=== PATIENT | female | born 1970 | race Caucasian/White ===

== ENCOUNTER 2020-02-06 17:53 | Observation (INO) ==
[2020-02-06 18:41] LABS: Basophils % 0.5 %; Eosinophils # 0.1 K/mcL (0.0-0.6); Eosinophils % 1.7 %; Hematocrit 20.3 % (35.3-44.9); Hemoglobin 6.7 g/dL (11.5-15.4); Immature Granulocytes % 0.2 % (0-4); Lymphocytes # 2.6 K/mcL (0.6-4.6); Lymphocytes % 31.6 %; Mean Corpuscular Hemoglobin 30.7 pg (28.0-33.3); Mean Corpuscular Volume 93.1 fL (83.0-100.0); Mean Platelet Volume 10.3 fL (9.4-12.4); Monocytes # 0.7 K/mcL (0.0-1.3); Monocytes % 8.1 %; Neutrophils # 4.8 K/mcL (1.6-8.9); Platelet Count 228 K/mcL (140-400); Red Blood Count 2.18 M/mcL (3.82-4.97); Red Cell Distribution Width 13.6 % (11.5-14.5); Segmented Neutrophils % 57.9 %; White Blood Count 8.3 K/mcL (4.3-11.1)
[2020-02-06 19:00] LABS: BUN/Creatinine Ratio 49 (6-26); Blood Urea Nitrogen 33 mg/dL (6-20); Calcium 8.5 mg/dL (8.6-10.3); Carbon Dioxide 24 mEq/L (23-29); Chloride 105 mEq/L (98-107); Glucose 100 mg/dL (70-105); Osmolality,Calculated 285 (280-300); Potassium 3.4 mEq/L (3.5-5.1); Sodium 134 mEq/L (136-145); Troponin I < 0.03 ng/mL (< 0.04); eGFR For African Americans > 60 (> 60); eGFR For Non-African Americans > 60 (> 60)
[2020-02-06 19:52] LABS: Prothrombin Time 11.4 Seconds (9.4-12.1)
[2020-02-06 19:54] LABS: Activated Partial Thrombo Time 24.9 Seconds (26.0-36.0)
[2020-02-06 21:37] LABS: Immature Reticulocyte % 33.1 % (11.0-38.0); Retculocyte # 0.1 M/mcL (0.05-0.10); Reticulocyte % 4.3 % (1.6-2.8)
[2020-02-06] MEDS ORDERED: Naloxone 0.4 MG/ML INJ IVP PRN (21:37)
[2020-02-06] MEDS ORDERED: cefTRIAXone 2,000 MG in 0.9 % Sodium Chloride Mini Bag 100 ML IVPB ONE (21:42)
[2020-02-06] MEDS ORDERED: Calcium Gluconate 1gm/50mL 1 GM/50 ML BAG IVPB ONE (21:42)
[2020-02-06 21:48] LABS: % Iron Saturation 5 % (15-50); Iron 19 mcg/dL (50-170); Lactate Dehydrogenase 163 Units/L (140-271); Transferrin 290 mg/dL (203-362)
[2020-02-06] MEDS ORDERED: 0.9 % Sodium Chloride 500 ML ONE (21:55)
[2020-02-06 22:06] LABS: Ferritin 22 ng/mL (10-120)
[2020-02-06 22:15] LABS: Folate > 22.3 ng/mL (3.0-16.0); Vitamin B12 765 pg/mL (250-1100)
[2020-02-06 22:40] LABS: Magnesium 1.8 mg/dL (1.6-2.6); Phosphorous 3.9 mg/dL (2.7-4.5)
[2020-02-06] MEDS: Nicotine 14 MG PATCH.TD24 TD SCH (23:55)
[2020-02-06] MEDS: 0.9 % Sodium Chloride 1,000 ML IVC SCH (23:57)
[2020-02-06] MEDS ORDERED: Potassium Chloride 20 MEQ, Lidocaine 1% 2 ML in 0.9 % Sodium Chloride 250 ML IVPB ONE (23:59)
[2020-02-07] MEDS: Melatonin 3 MG TABLET PO SCH (00:33)
[2020-02-07] MEDS: Pantoprazole 40 MG VIAL IVP SCH ×2 (04:20→17:42)
[2020-02-07 04:34] LABS: Basophils % 0.7 %; Eosinophils # 0.2 K/mcL (0.0-0.6); Eosinophils % 3.5 %; Hematocrit 24.7 % (35.3-44.9); Hemoglobin 8.2 g/dL (11.5-15.4); Immature Granulocytes % 0.3 % (0-4); Lymphocytes # 2.2 K/mcL (0.6-4.6); Lymphocytes % 36.7 %; Mean Corpuscular HGB Conc 33.2 g/dL (31.6-35.5); Mean Corpuscular Hemoglobin 30.9 pg (28.0-33.3); Mean Corpuscular Volume 93.2 fL (83.0-100.0); Monocytes # 0.5 K/mcL (0.0-1.3); Monocytes % 7.8 %; Platelet Count 167 K/mcL (140-400); Red Blood Count 2.65 M/mcL (3.82-4.97); Red Cell Distribution Width 13.5 % (11.5-14.5); White Blood Count 5.9 K/mcL (4.3-11.1)
[2020-02-07 04:55] LABS: Alanine Aminotransferase 89 Units/L (7-52); Albumin 2.9 g/dL (3.5-5.7); Albumin/Globulin Ratio 1.7 (1.1-2.2); Alkaline Phosphatase 26 Units/L (34-104); Aspartate Amino Transferase 49 Units/L (13-39); BUN/Creatinine Ratio 33 (6-26); Bilirubin,Total 0.4 mg/dL (0.3-1.0); Blood Urea Nitrogen 20 mg/dL (6-20); Calcium 8.1 mg/dL (8.6-10.3); Carbon Dioxide 23 mEq/L (23-29); Chloride 110 mEq/L (98-107); Globulin 1.7 g/dL (2.4-3.5); Glucose 91 mg/dL (70-105); Osmolality,Calculated 288 (280-300); Potassium 3.3 mEq/L (3.5-5.1); Sodium 138 mEq/L (136-145); Total Protein 4.6 g/dL (6.4-8.9); Troponin I < 0.03 ng/mL (< 0.04); eGFR For African Americans > 60 (> 60); eGFR For Non-African Americans > 60 (> 60)
[2020-02-07] MEDS ORDERED: Calcium Gluconate 1gm/50mL 1 GM/50 ML BAG IVPB SCH (06:00)
[2020-02-07] MEDS: 0.9 % Sodium Chloride 1,000 ML IVC SCH (06:14)
[2020-02-07 07:55] LABS: Bilirubin,Urine Negative (Negative); Blood,Urine Negative (Negative); Clarity,Urine Clear (Clear); Color,Urine Yellow (Yellow); Glucose,Urine (UA) Normal (Normal); Ketones,Urine 15 mg/dL (Negative); Leukocyte Esterase,Urine Negative (Negative); Nitrite,Urine Negative (Negative); PH,Urine 5.5 pH Units (5.0-8.0); Protein,Urine Negative (Neg-Trace); Specific Gravity,Urine > 1.030 (1.010-1.025); Urobilinogen,Urine Normal (Normal)
[2020-02-07] MEDS ORDERED: Potassium Chloride 20 MEQ, Lidocaine 1% 2 ML in 0.9 % Sodium Chloride 250 ML IVPB ONE (08:15)
[2020-02-07] MEDS ORDERED: 0.9 % Sodium Chloride 1,000 ML IVC ONE (09:40)
[2020-02-07 10:14] LABS: Hematocrit 25.8 % (35.3-44.9); Hemoglobin 8.5 g/dL (11.5-15.4)
[2020-02-07] MEDS ORDERED: Lidocaine -MPF 2% 2 ML VIAL ONE (10:25)
[2020-02-07] MEDS ORDERED: *HR* Propofol 200 MG/20 ML VIAL IVP ONE (10:25)
[2020-02-07] MEDS ORDERED: 0.9 % Sodium Chloride 500 ML IVC SCH (11:30)
[2020-02-07] MEDS: Nicotine 14 MG PATCH.TD24 TD SCH (13:58)
[2020-02-07 16:15] LABS: Hematocrit 26.1 % (35.3-44.9); Hemoglobin 8.5 g/dL (11.5-15.4)
[2020-02-07] MEDS ORDERED: SODIUM CHLORIDE/NAHCO3/KCL/PEG 4,000 ML SOLN.RECON PO ONE (17:00)
[2020-02-08] MEDS: Melatonin 3 MG TABLET PO SCH (05:08)
[2020-02-08] MEDS: Pantoprazole 40 MG VIAL IVP SCH (06:03)
[2020-02-08] MEDS ORDERED: *HR* Propofol 200 MG/20 ML VIAL IVP ONE (06:09)
[2020-02-08] MEDS ORDERED: Lidocaine -MPF 2% 2 ML VIAL ONE (06:09)
[2020-02-08] MEDS ORDERED: *HR* Succinylcholine 200 MG/10 ML VIAL IVP ONE (06:38)
[2020-02-08] MEDS ORDERED: Lurasidone 20 MG TABLET PO SCH (09:00)
[2020-02-08 09:10] LABS: Hematocrit 25.8 % (35.3-44.9); Hemoglobin 8.3 g/dL (11.5-15.4)
[2020-02-08 10:10] VITALS: BP 116/41
== END 2020-02-08 12:58 | disposition home or self-care (01) ==
LOC: 3ANU 17:53 → EMEROOARM 17:53 → SUATTDRO 19:59 → 3ANU 20:51
PROVIDERS: ADMIT Internal Medicine; ATTEND Internal Medicine